=== PATIENT | female | born 1935 | race Caucasian/White ===

== ENCOUNTER 2018-02-13 17:27 | Observation (INO) ==
[2018-02-13] MEDS ORDERED: hydrALAZINE 20 MG/1 ML VIAL IV STA (18:37)
[2018-02-13] MEDS ORDERED: hydrALAZINE 20 MG/1 ML VIAL ONE (18:41)
[2018-02-13 18:42] LABS: Basophils % 0.3 % (0.0-0.8); Eosinophils # 0.1 10*3/uL (0.0-0.87); Eosinophils % 1.3 % (0.00-10.9); Hematocrit 31.5 VOL% (35.7-47.0); Hemoglobin 10.2 GM/DL (12.0-16.0); Immature Granulocytes % 0.7 %; Immature Granulocytes Absolute 0.04 #; Mean Corpuscular HGB Conc 32.4 GM/DL (32-36); Mean Corpuscular Hemoglobin 28 PG (27-34); Mean Corpuscular Volume 87.3 FL (87-102); Mean Platelet Volume 9.6 FL (9.6-12.0); Monocytes # 0.7 10*3/uL (0.11-0.8); Monocytes % 11.1 % (1.7-12.7); Neutrophils # 3.3 10*3/uL (1.4-7.4); Neutrophils % 53.6 % (38.7-73.9); Platelet Count 237 T/CUMM (130-400); Red Blood Count 3.61 MC/CUMM (3.8-5.5); Red Cell Distribution Width 14.1 % (9.3-17.3); White Blood Count 6.1 T/CUMM (4-12)
[2018-02-13 19:07] LABS: Alanine Aminotransferase 17 U/L (13-56); Albumin 3.6 G/DL (3.4-5.0); Alkaline Phosphatase 108 U/L (45-117); Aspartate Amino Transferase 31 U/L (0-37); Bilirubin,Total < 0.39 MG/DL (0.2-1.0); Blood Urea Nitrogen 34 MG/DL (7-18); Calcium 8.6 MG/DL (8.5-10.1); Glucose 105 MG/DL (74-106); Osmolality,Calculated 282.7 MOS/KG (273-304); Potassium 3.9 MMOL/L (3.5-5.1); Sodium 138 MMOL/L (136-145)
[2018-02-13] MEDS ORDERED: ACETAMINOPHEN 325 MG TABLET PO PRN (20:34)
[2018-02-13] MEDS ORDERED: ZALEPLON 5 MG CAPSULE PO PRN (20:34)
[2018-02-13] MEDS ORDERED: MAGNESIUM HYDROXIDE SUSP 30 ML UDCUP PO PRN (20:34)
[2018-02-13] MEDS ORDERED: MORPHINE 2 MG/1 ML SYRINGE IV PRN (20:34)
[2018-02-13] MEDS ORDERED: ONDANSETRON 4 MG/2 ML VIAL IV PRN (20:34)
[2018-02-13] MEDS ORDERED: hydrALAZINE 20 MG/1 ML VIAL IV PRN (20:34)
[2018-02-13] MEDS ORDERED: HydrOXYzine PAMOATE 25 MG CAPSULE PO PRN (22:04)
[2018-02-13] MEDS ORDERED: CARVEDILOL 3.125 MG TABLET PO SCH (22:04)
[2018-02-13] MEDS: SULFAMETHOX/TRIMETHOPRIM 800-160 MG TABLET PO SCH (22:29)
[2018-02-13] MEDS: FAMOTIDINE 20 MG TABLET PO SCH (22:29)
[2018-02-13] MEDS: ENOXAPARIN 30 MG/0.3 ML SYRINGE SUBCUT SCH (22:29)
[2018-02-13] MEDS: CILOSTAZOL 50 MG TABLET PO SCH (22:29)
[2018-02-13] MEDS: PRAVASTATIN 40 MG TABLET PO SCH (22:29)
[2018-02-14] MEDS: NITROGLYCERIN 2% OINT 1 INCH/GM PACK TOP SCH ×4 (00:06→17:04)
[2018-02-14 05:21] LABS: Albumin 3.3 G/DL (3.4-5.0); Bilirubin,Total 0.4 MG/DL (0.2-1.0); Calcium 8.5 MG/DL (8.5-10.1); Osmolality,Calculated 287.4 MOS/KG (273-304); Potassium 4.4 MMOL/L (3.5-5.1); Risk Ratio 2.48; Total Protein 7.4 G/DL (6.4-8.3)
[2018-02-14] MEDS: CILOSTAZOL 50 MG TABLET PO SCH ×2 (09:41→21:09)
[2018-02-14] MEDS: PARoxetine 20 MG TABLET PO SCH (09:42)
[2018-02-14] MEDS: EZETIMIBE 10 MG TABLET PO SCH (09:42)
[2018-02-14] MEDS: FAMOTIDINE 20 MG TABLET PO SCH ×2 (09:42→21:09)
[2018-02-14] MEDS: ASPIRIN EC 325 MG TABLET PO SCH (09:42)
[2018-02-14] MEDS: SULFAMETHOX/TRIMETHOPRIM 800-160 MG TABLET PO SCH ×2 (09:42→21:09)
[2018-02-14] MEDS: FUROSEMIDE 20 MG TABLET PO SCH ×2 (09:42→16:58)
[2018-02-14] MEDS: CARVEDILOL 6.25 MG TABLET PO SCH ×2 (09:42→21:09)
[2018-02-14] MEDS ORDERED: OLMESARTAN 20 MG TABLET PO SCH (11:00)
[2018-02-14 11:01] LABS: Apearance,Urine CLEAR (Clear); Bilirubin,Urine Negative (Negative); Blood, Urine Negative (Negative); Glucose,Urine (UA) Negative (Negative); Ketones,Urine Negative (Negative); Nitrite,Urine Negative (Negative); Protein,Urine 100 MG/DL; RBC,Urine 1 /HPF (0-4); Squamous Epithelial Cell,Urine Occasional /HPF (0-10); Urine Color Yellow (Yellow); Urine Specific Gravity 1.011 (1.001-1.035); Urine Urobilinogen < 2.0 EU/DL (0.2-1.0); WBC,Urine 2 /HPF (0-6)
[2018-02-14] MEDS: SODIUM CHLORIDE 0.45% 1,000 ML IV SCH (15:30)
[2018-02-14] MEDS: PRAVASTATIN 40 MG TABLET PO SCH (21:10)
[2018-02-14] MEDS: ENOXAPARIN 30 MG/0.3 ML SYRINGE SUBCUT SCH (21:10)
[2018-02-15] MEDS: NITROGLYCERIN 2% OINT 1 INCH/GM PACK TOP SCH ×2 (00:38→05:48)
[2018-02-15 04:35] LABS: Basophils % 0.5 % (0.0-0.8); Eosinophils # 0.2 10*3/uL (0.0-0.87); Eosinophils % 2.6 % (0.00-10.9); Hematocrit 30.4 VOL% (35.7-47.0); Hemoglobin 9.6 GM/DL (12.0-16.0); Immature Granulocytes % 0.6 %; Immature Granulocytes Absolute 0.04 #; Lymphocytes % 31.1 % (21.3-54.2); Mean Corpuscular HGB Conc 31.6 GM/DL (32-36); Mean Corpuscular Hemoglobin 29 PG (27-34); Mean Corpuscular Volume 90.2 FL (87-102); Mean Platelet Volume 9.2 FL (9.6-12.0); Monocytes # 0.7 10*3/uL (0.11-0.8); Monocytes % 11.3 % (1.7-12.7); Neutrophils # 3.5 10*3/uL (1.4-7.4); Neutrophils % 53.9 % (38.7-73.9); Platelet Count 200 T/CUMM (130-400); Red Blood Count 3.37 MC/CUMM (3.8-5.5); Red Cell Distribution Width 13.9 % (9.3-17.3); White Blood Count 6.4 T/CUMM (4-12)
[2018-02-15] MEDS: SODIUM CHLORIDE 0.45% 1,000 ML IV SCH (04:55)
[2018-02-15 05:05] LABS: Calcium 8.2 MG/DL (8.5-10.1); Osmolality,Calculated 285.7 MOS/KG (273-304)
[2018-02-15] MEDS ORDERED: INFLUENZA VIRUS VACCINE 0.5 ML SYRINGE IM ONE (09:00)
[2018-02-15] MEDS: ASPIRIN EC 325 MG TABLET PO SCH (09:51)
[2018-02-15] MEDS: EZETIMIBE 10 MG TABLET PO SCH (09:51)
[2018-02-15] MEDS: CILOSTAZOL 50 MG TABLET PO SCH (09:51)
[2018-02-15] MEDS: CARVEDILOL 6.25 MG TABLET PO SCH (09:51)
[2018-02-15] MEDS: FUROSEMIDE 20 MG TABLET PO SCH (09:51)
[2018-02-15] MEDS: FAMOTIDINE 20 MG TABLET PO SCH (09:52)
[2018-02-15] MEDS: SULFAMETHOX/TRIMETHOPRIM 800-160 MG TABLET PO SCH (09:52)
[2018-02-15] MEDS: PARoxetine 20 MG TABLET PO SCH (09:52)
[2018-02-15] MEDS ORDERED: INFLUENZA VIRUS VACCINE (FLULAVAL) SYRINGE IM ONE (11:30)
[2018-02-15 12:17] VITALS: BP 158/69
[2018-02-16] MEDS ORDERED: fentaNYL 25 MCG/HR PATCH TRANSDERM SCH (09:00)
== END 2018-02-15 13:39 | disposition home or self-care (01) ==
LOC: EDBD → EDUNIT# → N.ED 17:27 → N.EDINP 17:27 → SUATTDRO 20:34 → N.TELEN 21:26
PROVIDERS: ADMIT Internal Medicine; ATTEND Internal Medicine

== ENCOUNTER 2018-07-05 12:03 | Inpatient (IN) ==
[2018-07-05 13:04] LABS: Basophils % 0.1 % (0.0-0.8); Eosinophils % 0.1 % (0.00-10.9); Hematocrit 30.2 VOL% (35.7-47.0); Hemoglobin 10.3 GM/DL (12.0-16.0); Immature Granulocytes % 0.4 %; Immature Granulocytes Absolute 0.04 #; Lymphocytes # 1.8 10*3/uL (1.4-4.0); Lymphocytes % 18.1 % (21.3-54.2); Mean Corpuscular HGB Conc 34.1 GM/DL (32-36); Mean Corpuscular Hemoglobin 29 PG (27-34); Mean Corpuscular Volume 83.9 FL (87-102); Mean Platelet Volume 10.5 FL (9.6-12.0); Monocytes # 1.1 10*3/uL (0.11-0.8); Monocytes % 11.1 % (1.7-12.7); Neutrophils # 6.9 10*3/uL (1.4-7.4); Neutrophils % 70.2 % (38.7-73.9); Platelet Count 289 T/CUMM (130-400); Red Cell Distribution Width 16.6 % (9.3-17.3); White Blood Count 9.8 T/CUMM (4-12)
[2018-07-05 13:34] LABS: Albumin 2.9 G/DL (3.4-5.0); Bilirubin,Total 1.1 MG/DL (0.2-1.0); Calcium 8.5 MG/DL (8.5-10.1); Osmolality,Calculated 281.5 MOS/KG (273-304); Potassium 5.3 MMOL/L (3.5-5.1); Total Protein 8.5 G/DL (6.4-8.3)
[2018-07-05 14:02] LABS: Apearance,Urine CLEAR (Clear); Bacteria,Urine Occasional /HPF (Few); Bilirubin,Urine Negative (Negative); Blood, Urine Negative (Negative); Glucose,Urine (UA) Negative (Negative); Ketones,Urine Negative (Negative); Nitrite,Urine Negative (Negative); Protein,Urine 100 MG/DL; RBC,Urine 1 /HPF (0-4); Urine Color Yellow (Yellow); Urine Specific Gravity 1.006 (1.001-1.035); Urine Urobilinogen < 2.0 EU/DL (0.2-1.0); WBC,Urine 1 /HPF (0-6)
[2018-07-05] MEDS ORDERED: MORPHINE 4 MG/1 ML VIAL IV PRN (16:23)
[2018-07-05] MEDS ORDERED: DOCUSATE SODIUM 100 MG CAPSULE PO PRN (16:23)
[2018-07-05] MEDS ORDERED: ONDANSETRON 4 MG/2 ML VIAL IV PRN (16:23)
[2018-07-05] MEDS: SODIUM CHLORIDE 0.9% 1,000 ML IV SCH (17:50)
[2018-07-05] MEDS: CIPROFLOXACIN 500 MG TABLET PO SCH (18:10)
[2018-07-05] MEDS: SODIUM POLYSTYRENE SULFATE 15 GM/60 ML BOTTLE PO SCH (18:10)
[2018-07-05 19:27] LABS: Bilirubin,Direct 0.21 MG/DL (0.0-0.20); Bilirubin,Indirect 0.8 MG/DL (0.0-1.0); Total Protein 8.5 G/DL (6.4-8.3)
[2018-07-05 19:30] LABS: CKMB % 2.1 %
[2018-07-05] MEDS: CARVEDILOL 6.25 MG TABLET PO SCH (20:53)
[2018-07-06] MEDS: SODIUM POLYSTYRENE SULFATE 15 GM/60 ML BOTTLE PO SCH (04:12)
[2018-07-06 05:00] LABS: Basophils % 0.2 % (0.0-0.8); Eosinophils % 0.4 % (0.00-10.9); Hematocrit 27.7 VOL% (35.7-47.0); Hemoglobin 8.8 GM/DL (12.0-16.0); Immature Granulocytes % 0.5 %; Immature Granulocytes Absolute 0.04 #; Lymphocytes # 1.9 10*3/uL (1.4-4.0); Lymphocytes % 22.1 % (21.3-54.2); Mean Corpuscular HGB Conc 31.8 GM/DL (32-36); Mean Corpuscular Hemoglobin 28 PG (27-34); Mean Corpuscular Volume 86.8 FL (87-102); Mean Platelet Volume 9.7 FL (9.6-12.0); Monocytes # 1.1 10*3/uL (0.11-0.8); Monocytes % 12.6 % (1.7-12.7); Neutrophils # 5.5 10*3/uL (1.4-7.4); Neutrophils % 64.2 % (38.7-73.9); Platelet Count 234 T/CUMM (130-400); Red Blood Count 3.19 MC/CUMM (3.8-5.5); Red Cell Distribution Width 16.3 % (9.3-17.3); White Blood Count 8.5 T/CUMM (4-12)
[2018-07-06 05:29] LABS: Calcium 8.2 MG/DL (8.5-10.1); Potassium 2.8 MMOL/L (3.5-5.1); Risk Ratio 1.67; Thyroid Stimulating Hormone 1.12 uIU/ml (0.358-3.74); VLDL CHOLESTEROL 14.8 MG/DL
[2018-07-06] MEDS: POTASSIUM CHLORIDE 20 MEQ TABLET PO PRN ×4 (05:52→15:57)
[2018-07-06] MEDS: SODIUM CHLORIDE 0.9% 1,000 ML IV SCH ×2 (05:52→21:23)
[2018-07-06] MEDS: PANTOPRAZOLE 40 MG TABLET PO SCH (08:55)
[2018-07-06] MEDS: PRAVASTATIN 40 MG TABLET PO SCH (08:55)
[2018-07-06] MEDS: CARVEDILOL 6.25 MG TABLET PO SCH (08:56)
[2018-07-06] MEDS ORDERED: CARVEDILOL 6.25 MG TABLET PO ONE (11:26)
[2018-07-06] MEDS ORDERED: NITROGLYCERIN SL 0.4 MG TABLET SL PRN (11:32)
[2018-07-06] MEDS: CIPROFLOXACIN 500 MG TABLET PO SCH (12:07)
[2018-07-06] MEDS: ASPIRIN EC 81 MG TABLET PO SCH (12:07)
[2018-07-06] MEDS ORDERED: ISOSORBIDE DINITRATE SR 40 MG TABLET PO SCH (14:00)
[2018-07-06] MEDS: CARVEDILOL 12.5 MG TABLET PO SCH (17:10)
[2018-07-06] MEDS: ISOSORBIDE MONONITRATE 30 MG TABLET PO SCH (21:24)
[2018-07-06] MEDS: traZODone 50 MG TABLET PO SCH (23:15)
[2018-07-07 04:15] LABS: Basophils % 0.1 % (0.0-0.8); Eosinophils # 0.1 10*3/uL (0.0-0.87); Eosinophils % 0.9 % (0.00-10.9); Hemoglobin 7.3 GM/DL (12.0-16.0); Immature Granulocytes % 0.4 %; Immature Granulocytes Absolute 0.03 #; Lymphocytes # 1.9 10*3/uL (1.4-4.0); Lymphocytes % 25.9 % (21.3-54.2); Mean Corpuscular HGB Conc 31.7 GM/DL (32-36); Mean Corpuscular Hemoglobin 27 PG (27-34); Mean Corpuscular Volume 86.5 FL (87-102); Mean Platelet Volume 9.7 FL (9.6-12.0); Monocytes # 0.8 10*3/uL (0.11-0.8); Monocytes % 10.8 % (1.7-12.7); Neutrophils # 4.6 10*3/uL (1.4-7.4); Neutrophils % 61.9 % (38.7-73.9); Platelet Count 200 T/CUMM (130-400); Red Blood Count 2.66 MC/CUMM (3.8-5.5); Red Cell Distribution Width 16.1 % (9.3-17.3); White Blood Count 7.4 T/CUMM (4-12)
[2018-07-07 04:49] LABS: Calcium 8.1 MG/DL (8.5-10.1); Osmolality,Calculated 297.3 MOS/KG (273-304); Potassium 3.1 MMOL/L (3.5-5.1)
[2018-07-07 04:50] LABS: Calcium 8.2 MG/DL (8.5-10.1); Osmolality,Calculated 295.4 MOS/KG (273-304); Potassium 3.1 MMOL/L (3.5-5.1)
[2018-07-07] MEDS: POTASSIUM CHLORIDE 20 MEQ TABLET PO PRN ×4 (05:08→14:51)
[2018-07-07] MEDS ORDERED: SODIUM CHLORIDE 0.9% 1,000 ML IV PRN (05:42)
[2018-07-07] MEDS: CIPROFLOXACIN 500 MG TABLET PO SCH (06:53)
[2018-07-07 08:46] LABS: % Iron Saturation 12.3 % (18-50); Ferritin 122.6 ng/ml (8-252)
[2018-07-07 08:53] LABS: Folate 10.6 NG/ML (5.4-24.0)
[2018-07-07] MEDS ORDERED: FERROUS SULFATE 325 MG TABLET PO SCH (09:00)
[2018-07-07] MEDS: CARVEDILOL 12.5 MG TABLET PO SCH (09:05)
[2018-07-07] MEDS: PANTOPRAZOLE 40 MG TABLET PO SCH (09:05)
[2018-07-07] MEDS: ISOSORBIDE MONONITRATE 30 MG TABLET PO SCH ×2 (09:05→21:19)
[2018-07-07] MEDS: PRAVASTATIN 40 MG TABLET PO SCH (09:05)
[2018-07-07] MEDS: ASPIRIN EC 81 MG TABLET PO SCH (09:05)
[2018-07-07] MEDS: SODIUM CHLORIDE 0.9% 1,000 ML IV SCH (09:06)
[2018-07-07] MEDS: CARVEDILOL 25 MG TABLET PO SCH (17:47)
[2018-07-07] MEDS: traZODone 50 MG TABLET PO SCH (21:20)
[2018-07-08] MEDS: CIPROFLOXACIN 500 MG TABLET PO SCH (00:12)
[2018-07-08] MEDS: SODIUM CHLORIDE 0.9% 1,000 ML IV SCH ×2 (00:13→11:51)
[2018-07-08 04:30] LABS: Basophils % 0.3 % (0.0-0.8); Eosinophils # 0.1 10*3/uL (0.0-0.87); Eosinophils % 1.7 % (0.00-10.9); Hematocrit 25.3 VOL% (35.7-47.0); Hemoglobin 8.1 GM/DL (12.0-16.0); Immature Granulocytes % 0.5 %; Immature Granulocytes Absolute 0.04 #; Lymphocytes # 1.9 10*3/uL (1.4-4.0); Lymphocytes % 24.5 % (21.3-54.2); Mean Corpuscular Hemoglobin 28 PG (27-34); Mean Corpuscular Volume 88.5 FL (87-102); Mean Platelet Volume 10.1 FL (9.6-12.0); Monocytes # 0.8 10*3/uL (0.11-0.8); Monocytes % 10.5 % (1.7-12.7); Neutrophils # 4.9 10*3/uL (1.4-7.4); Neutrophils % 62.5 % (38.7-73.9); Platelet Count 192 T/CUMM (130-400); Red Blood Count 2.86 MC/CUMM (3.8-5.5); Red Cell Distribution Width 15.9 % (9.3-17.3); White Blood Count 7.8 T/CUMM (4-12)
[2018-07-08 04:45] LABS: Calcium 7.7 MG/DL (8.5-10.1); Calcium 7.9 MG/DL (8.5-10.1); Osmolality,Calculated 292.3 MOS/KG (273-304); Osmolality,Calculated 294.1 MOS/KG (273-304); Potassium 3.7 MMOL/L (3.5-5.1)
[2018-07-08] MEDS ORDERED: FERROUS SULFATE 325 MG TABLET PO SCH (09:00)
[2018-07-08] MEDS: PRAVASTATIN 40 MG TABLET PO SCH (09:14)
[2018-07-08] MEDS: CARVEDILOL 25 MG TABLET PO SCH (09:14)
[2018-07-08] MEDS: PANTOPRAZOLE 40 MG TABLET PO SCH (09:14)
[2018-07-08] MEDS: ASPIRIN EC 81 MG TABLET PO SCH (09:14)
[2018-07-08] MEDS: ISOSORBIDE MONONITRATE 30 MG TABLET PO SCH (09:14)
[2018-07-08] MEDS ORDERED: ISOSORBIDE MONONITRATE 30 MG TABLET PO SCH (10:57)
[2018-07-08 12:45] VITALS: BP 191/87
== END 2018-07-08 14:15 | disposition home health service (06) | DRG 312 ==
LOC: EDBD → EDUNIT# → N.ED 12:03 → N.EDINP 14:26 → N.2W 15:02 → N.TELES 16:04
PROVIDERS: ADMIT Internal Medicine; ATTEND Internal Medicine

== ENCOUNTER 2019-05-31 17:06 | Inpatient (IN) ==
[2019-05-31 18:00] LABS: Basophils % 0.5 % (0.0-0.8); Eosinophils # 0.1 10*3/uL (0.0-0.87); Eosinophils % 1.7 % (0.00-10.9); Hematocrit 26.9 VOL% (35.7-47.0); Hemoglobin 8.1 GM/DL (12.0-16.0); Immature Granulocytes % 0.5 %; Immature Granulocytes Absolute 0.03 #; Lymphocytes # 1.7 10*3/uL (1.4-4.0); Lymphocytes % 28.6 % (21.3-54.2); Mean Corpuscular HGB Conc 30.1 GM/DL (32-36); Mean Corpuscular Volume 90.9 FL (87-102); Mean Platelet Volume 9.6 FL (9.6-12.0); Monocytes % 10.3 % (1.7-12.7); Neutrophils % 58.4 % (38.7-73.9); Platelet Count 261 T/CUMM (130-400); Red Blood Count 2.96 MC/CUMM (3.8-5.5); Red Cell Distribution Width 14.5 % (9.3-17.3); White Blood Count 5.8 T/CUMM (4-12)
[2019-05-31 18:16] LABS: Alanine Aminotransferase 28 U/L (13-56); Albumin 2.9 G/DL (3.4-5.0); Alkaline Phosphatase 94 U/L (45-117); Aspartate Amino Transferase 22 U/L (0-37); Bilirubin,Total < 0.39 MG/DL (0.2-1.0); Blood Urea Nitrogen 53 MG/DL (7-18); Calcium 8.4 MG/DL (8.5-10.1); Glucose 158 MG/DL (74-106); Osmolality,Calculated 291.7 MOS/KG (273-304); Total Protein 7.7 G/DL (6.4-8.3)
[2019-05-31] MEDS ORDERED: ASPIRIN CHEW 81 MG TABLET PO STA (18:36)
[2019-05-31] MEDS ORDERED: FUROSEMIDE 40 MG/4 ML VIAL IV STA (18:36)
[2019-05-31] MEDS ORDERED: PANTOPRAZOLE 40 MG VIAL IV STA (18:40)
[2019-05-31 19:17] LABS: Apearance,Urine CLEAR (Clear); Bilirubin,Urine Negative (Negative); Blood, Urine Negative (Negative); Glucose,Urine (UA) Negative (Negative); Ketones,Urine Negative (Negative); Mucus,Urine Occasional /LPF (Occasional); Nitrite,Urine Negative (Negative); Protein,Urine Negative; RBC,Urine 2 /HPF (0-4); Urine Color Yellow (Yellow); Urine Specific Gravity 1.009 (1.001-1.035); Urine Urobilinogen < 2.0 EU/DL (0.2-1.0); WBC,Urine 21 /HPF (0-6)
[2019-05-31] MEDS ORDERED: ACETAMINOPHEN 325 MG TABLET PO PRN (20:12)
[2019-05-31] MEDS ORDERED: traZODone 50 MG TABLET PO PRN (20:12)
[2019-05-31] MEDS ORDERED: ONDANSETRON 4 MG/2 ML VIAL IV PRN (20:12)
[2019-05-31] MEDS ORDERED: NITROGLYCERIN SL 0.4 MG TABLET SL PRN (20:21)
[2019-05-31] MEDS ORDERED: ALBUTEROL/IPRATROPIUM 3 ML NEB RESP TX PRN (20:21)
[2019-05-31] MEDS ORDERED: SODIUM CHLORIDE 0.9% 1,000 ML IV PRN (20:25)
[2019-05-31] MEDS ORDERED: FUROSEMIDE 40 MG/4 ML VIAL IV ONE (20:26)
[2019-05-31 20:52] LABS: Risk Ratio 2.82; Thyroid Stimulating Hormone 1.56 uIU/ml (0.358-3.74); VLDL CHOLESTEROL 24.4 MG/DL
[2019-05-31] MEDS ORDERED: CARVEDILOL 6.25 MG TABLET PO SCH (21:00)
[2019-05-31] MEDS: FERROUS SULFATE 325 MG TABLET PO SCH (23:05)
[2019-05-31] MEDS: FAMOTIDINE 20 MG TABLET PO SCH (23:05)
[2019-05-31] MEDS: traZODone 50 MG TABLET PO SCH (23:05)
[2019-05-31] MEDS: cefTRIAXone 1,000 MG in SYRINGE 1 EACH IV SCH (23:06)
[2019-06-01] MEDS ORDERED: SODIUM CHLORIDE 0.9% 1,000 ML IV PRN (01:36)
[2019-06-01 02:08] LABS: Basophils % 0.6 % (0.0-0.8); Eosinophils # 0.1 10*3/uL (0.0-0.87); Eosinophils % 2.2 % (0.00-10.9); Hematocrit 25.8 VOL% (35.7-47.0); Hemoglobin 7.9 GM/DL (12.0-16.0); Immature Granulocytes % 0.8 %; Immature Granulocytes Absolute 0.04 #; Lymphocytes # 1.6 10*3/uL (1.4-4.0); Lymphocytes % 33.5 % (21.3-54.2); Mean Corpuscular HGB Conc 30.6 GM/DL (32-36); Mean Corpuscular Volume 91.5 FL (87-102); Mean Platelet Volume 9.5 FL (9.6-12.0); Neutrophils % 52.9 % (38.7-73.9); Platelet Count 254 T/CUMM (130-400); Red Blood Count 2.82 MC/CUMM (3.8-5.5); Red Cell Distribution Width 14.3 % (9.3-17.3); White Blood Count 4.9 T/CUMM (4-12)
[2019-06-01 02:28] LABS: Alanine Aminotransferase 26 U/L (13-56); Albumin 2.6 G/DL (3.4-5.0); Alkaline Phosphatase 87 U/L (45-117); Aspartate Amino Transferase 19 U/L (0-37); Bilirubin,Total < 0.39 MG/DL (0.2-1.0); Blood Urea Nitrogen 54 MG/DL (7-18); Calcium 8.3 MG/DL (8.5-10.1); Glucose 100 MG/DL (74-106); Osmolality,Calculated 293.4 MOS/KG (273-304); Total Protein 7.3 G/DL (6.4-8.3)
[2019-06-01] MEDS ORDERED: POTASSIUM CHLORIDE 20 MEQ TABLET PO ONE (07:19)
[2019-06-01] MEDS: FUROSEMIDE 40 MG/4 ML VIAL IV SCH ×2 (08:57→15:40)
[2019-06-01] MEDS: ISOSORBIDE MONONITRATE 30 MG TABLET PO SCH (08:58)
[2019-06-01] MEDS: PARoxetine 20 MG TABLET PO SCH (08:59)
[2019-06-01] MEDS: PANTOPRAZOLE 40 MG TABLET PO SCH (08:59)
[2019-06-01] MEDS: FERROUS SULFATE 325 MG TABLET PO SCH ×3 (08:59→21:13)
[2019-06-01] MEDS ORDERED: NON-FORMULARY MEDICATION (Biotin 5 MG) PO SCH (09:00)
[2019-06-01] MEDS: CARVEDILOL 12.5 MG TABLET PO SCH ×2 (09:06→21:13)
[2019-06-01] MEDS: ASPIRIN EC 81 MG TABLET PO SCH (09:06)
[2019-06-01 09:35] LABS: Troponin I 0.683 NG/ML (0.00-0.045)
[2019-06-01] MEDS: ALLOPURINOL 100 MG TABLET PO SCH ×2 (13:41→21:13)
[2019-06-01 16:10] LABS: Hematocrit 35.4 VOL% (35.7-47.0); Hemoglobin 10.9 GM/DL (12.0-16.0)
[2019-06-01] MEDS: FAMOTIDINE 20 MG TABLET PO SCH (21:13)
[2019-06-01] MEDS: traZODone 50 MG TABLET PO SCH (21:13)
[2019-06-01] MEDS: SIMVASTATIN 20 MG TABLET PO SCH (21:13)
[2019-06-01] MEDS: cefTRIAXone 1,000 MG in SYRINGE 1 EACH IV SCH (21:14)
[2019-06-02 06:46] LABS: Troponin I 0.529 NG/ML (0.00-0.045)
[2019-06-02 07:23] LABS: % Iron Saturation 16.2 % (18-50); Ferritin 136.3 ng/ml (8-252); Total Protein 7.4 G/DL (6.4-8.3)
[2019-06-02] MEDS: ASPIRIN EC 81 MG TABLET PO SCH (09:02)
[2019-06-02] MEDS: FERROUS SULFATE 325 MG TABLET PO SCH ×3 (09:02→20:50)
[2019-06-02] MEDS: ISOSORBIDE MONONITRATE 30 MG TABLET PO SCH (09:02)
[2019-06-02] MEDS: ALLOPURINOL 100 MG TABLET PO SCH (09:03)
[2019-06-02] MEDS: CARVEDILOL 12.5 MG TABLET PO SCH ×2 (09:03→20:50)
[2019-06-02] MEDS: FUROSEMIDE 40 MG/4 ML VIAL IV SCH (09:03)
[2019-06-02] MEDS: PARoxetine 20 MG TABLET PO SCH (09:03)
[2019-06-02] MEDS: PANTOPRAZOLE 40 MG TABLET PO SCH (09:03)
[2019-06-02] MEDS: POLYETHYLENE GLYCOL POWDER 17 GM PACK PO SCH ×2 (16:56→20:51)
[2019-06-02] MEDS: traZODone 50 MG TABLET PO SCH (20:50)
[2019-06-02] MEDS: SIMVASTATIN 20 MG TABLET PO SCH (20:51)
[2019-06-02] MEDS: FAMOTIDINE 20 MG TABLET PO SCH (20:51)
[2019-06-02] MEDS: cefTRIAXone 1,000 MG in SYRINGE 1 EACH IV SCH (20:51)
[2019-06-03 06:14] LABS: Basophils % 0.6 % (0.0-0.8); Eosinophils # 0.1 10*3/uL (0.0-0.87); Eosinophils % 1.8 % (0.00-10.9); Hematocrit 32.2 VOL% (35.7-47.0); Hemoglobin 9.8 GM/DL (12.0-16.0); Immature Granulocytes % 0.5 %; Immature Granulocytes Absolute 0.03 #; Lymphocytes # 1.6 10*3/uL (1.4-4.0); Lymphocytes % 24.8 % (21.3-54.2); Mean Corpuscular HGB Conc 30.4 GM/DL (32-36); Mean Corpuscular Volume 89.9 FL (87-102); Mean Platelet Volume 9.5 FL (9.6-12.0); Monocytes % 11.8 % (1.7-12.7); Neutrophils % 60.5 % (38.7-73.9); Platelet Count 242 T/CUMM (130-400); Red Blood Count 3.58 MC/CUMM (3.8-5.5); Red Cell Distribution Width 14.9 % (9.3-17.3); White Blood Count 6.3 T/CUMM (4-12)
[2019-06-03 06:20] LABS: Calcium 8.7 MG/DL (8.5-10.1); Osmolality,Calculated 294.5 MOS/KG (273-304)
[2019-06-03 06:54] LABS: Total Protein (Chem) 7.4 G/DL (6.4-8.3)
[2019-06-03] MEDS ORDERED: PROPOFOL 200 MG/20 ML VIAL IV ONE (09:00)
[2019-06-03] MEDS ORDERED: LIDOCAINE 1% 5 ML VIAL ONE (09:00)
[2019-06-03 10:17] LABS: Albumin (SPE) 3.6 G/DL (3.2-5.3); Albumin (SPE) Rel % 48.9 %; Alpha 1 (SPE) 0.3 G/DL (0.1-0.4); Alpha 1 (SPE) Rel % 3.6 %; Alpha 2 (SPE) 1.1 G/DL (0.4-1.0); Alpha 2 (SPE) Rel % 14.9 %; Beta (SPE) 0.7 G/DL (0.5-1.1); Beta (SPE) Rel % 10.1 %; Gamma (SPE) Rel % 22.5 %
[2019-06-03 10:19] LABS: Gamma (SPE) 1.7 G/DL (0.7-1.7)
[2019-06-03] MEDS: LACTATED RINGERS 1,000 ML IV SCH (13:55)
[2019-06-03] MEDS ORDERED: POLYETHYLENE GLYCOL 3350/ELECTROLYTES 4,000 ML BOTTLE PEG ONE (14:40)
[2019-06-03] MEDS: POLYETHYLENE GLYCOL POWDER 17 GM PACK PO SCH ×2 (15:00→21:52)
[2019-06-03] MEDS: PARoxetine 20 MG TABLET PO SCH (15:00)
[2019-06-03] MEDS: ASPIRIN EC 81 MG TABLET PO SCH (15:00)
[2019-06-03] MEDS: ISOSORBIDE MONONITRATE 30 MG TABLET PO SCH (15:00)
[2019-06-03] MEDS: PANTOPRAZOLE 40 MG TABLET PO SCH (15:00)
[2019-06-03] MEDS: FERROUS SULFATE 325 MG TABLET PO SCH ×2 (15:00→21:51)
[2019-06-03] MEDS ORDERED: POLYETHYLENE GLYCOL 3350/ELECTROLYTES 4,000 ML BOTTLE PO ONE (15:03)
[2019-06-03] MEDS: CARVEDILOL 12.5 MG TABLET PO SCH (15:32)
[2019-06-03] MEDS: BISACODYL 5 MG TABLET PO SCH ×2 (16:20→23:14)
[2019-06-03] MEDS ORDERED: POLYETHYLENE GLYCOL POWDER 255 GM BOTTLE PO ONE (18:00)
[2019-06-03] MEDS ORDERED: MAGNESIUM CITRATE 300 ML BOTTLE PO ONE (21:00)
[2019-06-03] MEDS: FAMOTIDINE 20 MG TABLET PO SCH (21:51)
[2019-06-03] MEDS: traZODone 50 MG TABLET PO SCH (21:51)
[2019-06-03] MEDS: CARVEDILOL 25 MG TABLET PO SCH (21:51)
[2019-06-03] MEDS: cefTRIAXone 1,000 MG in SYRINGE 1 EACH IV SCH (21:52)
[2019-06-03] MEDS: SIMVASTATIN 20 MG TABLET PO SCH (21:52)
[2019-06-04 04:42] LABS: Basophils % 0.3 % (0.0-0.8); Eosinophils # 0.1 10*3/uL (0.0-0.87); Hematocrit 34.1 VOL% (35.7-47.0); Hemoglobin 10.3 GM/DL (12.0-16.0); Immature Granulocytes % 0.3 %; Immature Granulocytes Absolute 0.02 #; Lymphocytes # 1.1 10*3/uL (1.4-4.0); Lymphocytes % 17.7 % (21.3-54.2); Mean Corpuscular HGB Conc 30.2 GM/DL (32-36); Mean Corpuscular Volume 90.7 FL (87-102); Mean Platelet Volume 9.8 FL (9.6-12.0); Monocytes % 12.4 % (1.7-12.7); Neutrophils % 68.3 % (38.7-73.9); Platelet Count 253 T/CUMM (130-400); Red Blood Count 3.76 MC/CUMM (3.8-5.5); Red Cell Distribution Width 14.7 % (9.3-17.3); White Blood Count 6.2 T/CUMM (4-12)
[2019-06-04 04:54] LABS: Calcium 8.8 MG/DL (8.5-10.1); Osmolality,Calculated 285.7 MOS/KG (273-304)
[2019-06-04] MEDS: LACTATED RINGERS 1,000 ML IV SCH (07:30)
[2019-06-04] MEDS ORDERED: PROPOFOL 200 MG/20 ML VIAL IV ONE (09:00)
[2019-06-04] MEDS ORDERED: ONDANSETRON 4 MG/2 ML VIAL ONE (09:00)
[2019-06-04] MEDS ORDERED: LIDOCAINE 2% 5 ML VIAL ONE (09:00)
[2019-06-04] MEDS: CARVEDILOL 25 MG TABLET PO SCH (09:05)
[2019-06-04] MEDS: BISACODYL 5 MG TABLET PO SCH (09:05)
[2019-06-04] MEDS: ASPIRIN EC 81 MG TABLET PO SCH (09:05)
[2019-06-04] MEDS: FERROUS SULFATE 325 MG TABLET PO SCH (09:05)
[2019-06-04] MEDS: ISOSORBIDE MONONITRATE 30 MG TABLET PO SCH (09:06)
[2019-06-04] MEDS: PANTOPRAZOLE 40 MG TABLET PO SCH (09:06)
[2019-06-04] MEDS: PARoxetine 20 MG TABLET PO SCH (09:06)
[2019-06-04] MEDS: POLYETHYLENE GLYCOL POWDER 17 GM PACK PO SCH (09:06)
[2019-06-04 11:55] VITALS: BP 155/74
[2019-06-05 09:20] LABS: Immuno Free Light Chain Kappa 44.19 MG/DL (0.33-1.94); Immuno Free Light Chain Lambda 1.12 MG/DL (0.57-2.63); Immuno Free Light Chain Ratio 39.46 MG/DL (0.26-1.65)
== END 2019-06-04 14:38 | disposition home or self-care (01) | DRG 377 ==
LOC: N.ED 17:06 → N.EDINP 20:11 → N.TELES 20:42
PROVIDERS: ADMIT Internal Medicine; ATTEND Internal Medicine

== ENCOUNTER 2022-07-02 09:20 | Inpatient (IN) ==
[2022-07-02] MEDS ORDERED: FUROSEMIDE 100 MG/10 ML VIAL IV STA (09:57)
[2022-07-02 10:03] LABS: Basophils % 0.4 % (0.0-0.8); Eosinophils % 0.5 % (0.00-10.9); Hematocrit 32.4 VOL% (35.7-47.0); Hemoglobin 9.9 GM/DL (12.0-16.0); Immature Granulocytes % 0.5 %; Immature Granulocytes Absolute 0.04 #; Lymphocytes # 1.3 10*3/uL (1.4-4.0); Lymphocytes % 15.2 % (21.3-54.2); Mean Corpuscular HGB Conc 30.6 GM/DL (32-36); Mean Corpuscular Volume 94.2 FL (87-102); Mean Platelet Volume 10.2 FL (9.6-12.0); Monocytes # 0.5 10*3/uL (0.11-0.8); Monocytes % 6.3 % (1.7-12.7); Neutrophils % 77.1 % (38.7-73.9); Platelet Count 206 T/CUMM (130-400); Red Blood Count 3.44 MC/CUMM (3.8-5.5); Red Cell Distribution Width 16.3 % (9.3-17.3); White Blood Count 8.5 T/CUMM (4-12)
[2022-07-02 10:13] LABS: Albumin 3.6 G/DL (3.4-5.0); Bilirubin,Total 0.6 MG/DL (0.20-1.00); Calcium 8.6 MG/DL (8.5-10.1); Potassium 3.7 MMOL/L (3.5-5.1); Total Protein 6.4 G/DL (6.4-8.2)
[2022-07-02] MEDS ORDERED: ACETAMINOPHEN 325 MG TABLET PO PRN (13:13)
[2022-07-02] MEDS ORDERED: DOCUSATE SODIUM 100 MG CAPSULE PO PRN (13:13)
[2022-07-02] MEDS ORDERED: hydrALAZINE 20 MG/1 ML VIAL IV PRN (13:13)
[2022-07-02] MEDS ORDERED: LACTULOSE 20 GM/30 ML UDCUP PO PRN (13:13)
[2022-07-02] MEDS ORDERED: ONDANSETRON 4 MG/2 ML VIAL IV PRN (13:13)
[2022-07-02] MEDS ORDERED: GLUCAGON 1 MG VIAL IM PRN (13:13)
[2022-07-02] MEDS ORDERED: ALUMINUM/MAGNES/SIMETH MAX STR 30 ML UDCUP PO PRN (13:13)
[2022-07-02] MEDS ORDERED: NITROGLYCERIN SL 0.4 MG TABLET SL PRN (13:22)
[2022-07-02] MEDS ORDERED: DEXTROSE 10% 250 ML BAG IV PRN (13:23)
[2022-07-02] MEDS ORDERED: FUROSEMIDE 40 MG/4 ML VIAL IV SCH (16:00)
[2022-07-02] MEDS: FERROUS SULFATE 325 MG TABLET PO SCH ×2 (16:46→20:46)
[2022-07-02] MEDS: carvediloL 12.5 MG TABLET PO SCH (20:46)
[2022-07-02] MEDS: SIMVASTATIN 20 MG TABLET PO SCH (20:46)
[2022-07-02] MEDS: ENOXAPARIN 30 MG/0.3 ML SYRINGE SUBCUT SCH (20:46)
[2022-07-02] MEDS: traZODone 50 MG TABLET PO SCH (20:49)
[2022-07-03 04:52] LABS: Basophils % 0.3 % (0.0-0.8); Eosinophils # 0.1 10*3/uL (0.0-0.87); Eosinophils % 1.3 % (0.00-10.9); Hematocrit 28.2 VOL% (35.7-47.0); Hemoglobin 8.4 GM/DL (12.0-16.0); Immature Granulocytes % 0.4 %; Immature Granulocytes Absolute 0.03 #; Lymphocytes # 1.5 10*3/uL (1.4-4.0); Lymphocytes % 21.6 % (21.3-54.2); Mean Corpuscular HGB Conc 29.8 GM/DL (32-36); Mean Corpuscular Volume 94.9 FL (87-102); Mean Platelet Volume 10.5 FL (9.6-12.0); Monocytes # 0.6 10*3/uL (0.11-0.8); Monocytes % 9.3 % (1.7-12.7); Neutrophils % 67.1 % (38.7-73.9); Platelet Count 156 T/CUMM (130-400); Red Blood Count 2.97 MC/CUMM (3.8-5.5); Red Cell Distribution Width 15.9 % (9.3-17.3); White Blood Count 6.9 T/CUMM (4-12)
[2022-07-03 05:33] LABS: Bilirubin,Total 0.4 MG/DL (0.20-1.00); Calcium 7.7 MG/DL (8.5-10.1); Osmolality,Calculated 305.3 MOS/KG (273-304); Potassium 3.6 MMOL/L (3.5-5.1); Risk Ratio 2.97; Thyroid Stimulating Hormone 1.42 uIU/ml (0.358-3.74); Total Protein 5.7 G/DL (6.4-8.2); VLDL Cholesterol 30.6 MG/DL
[2022-07-03] MEDS ORDERED: SODIUM CHLORIDE 0.9% 1,000 ML IV SCH (08:30)
[2022-07-03] MEDS: ASPIRIN EC 81 MG TABLET PO SCH (08:49)
[2022-07-03] MEDS: PANTOPRAZOLE 40 MG TABLET PO SCH (08:49)
[2022-07-03] MEDS: ISOSORBIDE MONONITRATE 60 MG TABLET PO SCH (08:50)
[2022-07-03] MEDS: FERROUS SULFATE 325 MG TABLET PO SCH ×3 (08:50→21:24)
[2022-07-03] MEDS: carvediloL 12.5 MG TABLET PO SCH ×2 (08:50→21:24)
[2022-07-03] MEDS: allopurinoL 100 MG TABLET PO SCH (08:50)
[2022-07-03] MEDS: EZETIMIBE 10 MG TABLET PO SCH (08:50)
[2022-07-03] MEDS: PARoxetine 20 MG TABLET PO SCH (08:50)
[2022-07-03] MEDS: cefTRIAXone 1,000 MG in SODIUM CHLORIDE 0.9% 100 ML IV SCH (10:36)
[2022-07-03] MEDS: AZITHROMYCIN INJ 500 MG in SODIUM CHLORIDE 0.9% 250 ML IV SCH (11:35)
[2022-07-03] MEDS: ENOXAPARIN 30 MG/0.3 ML SYRINGE SUBCUT SCH (21:24)
[2022-07-03] MEDS: traZODone 50 MG TABLET PO SCH (21:24)
[2022-07-03] MEDS: SIMVASTATIN 20 MG TABLET PO SCH (21:24)
[2022-07-04 05:44] LABS: Basophils % 0.3 % (0.0-0.8); Eosinophils # 0.1 10*3/uL (0.0-0.87); Eosinophils % 2.1 % (0.00-10.9); Hematocrit 28.5 VOL% (35.7-47.0); Hemoglobin 8.7 GM/DL (12.0-16.0); Immature Granulocytes % 0.9 %; Immature Granulocytes Absolute 0.06 #; Lymphocytes # 1.2 10*3/uL (1.4-4.0); Mean Corpuscular HGB Conc 30.5 GM/DL (32-36); Mean Corpuscular Volume 95.3 FL (87-102); Mean Platelet Volume 10.7 FL (9.6-12.0); Monocytes # 0.6 10*3/uL (0.11-0.8); Monocytes % 8.9 % (1.7-12.7); Neutrophils % 69.8 % (38.7-73.9); Platelet Count 156 T/CUMM (130-400); Red Blood Count 2.99 MC/CUMM (3.8-5.5); White Blood Count 6.7 T/CUMM (4-12)
[2022-07-04 06:13] LABS: Calcium 7.7 MG/DL (8.5-10.1); Osmolality,Calculated 310.8 MOS/KG (273-304); Potassium 3.5 MMOL/L (3.5-5.1)
[2022-07-04] MEDS: ASPIRIN EC 81 MG TABLET PO SCH (10:39)
[2022-07-04] MEDS: allopurinoL 100 MG TABLET PO SCH (10:39)
[2022-07-04] MEDS: FERROUS SULFATE 325 MG TABLET PO SCH ×3 (10:39→21:31)
[2022-07-04] MEDS: PARoxetine 20 MG TABLET PO SCH (10:39)
[2022-07-04] MEDS: EZETIMIBE 10 MG TABLET PO SCH (10:40)
[2022-07-04] MEDS: carvediloL 12.5 MG TABLET PO SCH ×2 (10:40→21:31)
[2022-07-04] MEDS: PANTOPRAZOLE 40 MG TABLET PO SCH (10:40)
[2022-07-04] MEDS: ISOSORBIDE MONONITRATE 60 MG TABLET PO SCH (10:41)
[2022-07-04] MEDS: cefTRIAXone 1,000 MG in SODIUM CHLORIDE 0.9% 100 ML IV SCH (10:43)
[2022-07-04] MEDS: AZITHROMYCIN INJ 500 MG in SODIUM CHLORIDE 0.9% 250 ML IV SCH (11:40)
[2022-07-04] MEDS: ENOXAPARIN 30 MG/0.3 ML SYRINGE SUBCUT SCH (21:31)
[2022-07-04] MEDS: traZODone 50 MG TABLET PO SCH (21:31)
[2022-07-04] MEDS: SIMVASTATIN 20 MG TABLET PO SCH (21:31)
[2022-07-05 09:04] LABS: Osmolality,Calculated 309.1 MOS/KG (273-304); Potassium 3.5 MMOL/L (3.5-5.1)
[2022-07-05] MEDS: cefTRIAXone 1,000 MG in SODIUM CHLORIDE 0.9% 100 ML IV SCH (09:34)
[2022-07-05] MEDS: EZETIMIBE 10 MG TABLET PO SCH (09:35)
[2022-07-05] MEDS: allopurinoL 100 MG TABLET PO SCH (09:36)
[2022-07-05] MEDS: FERROUS SULFATE 325 MG TABLET PO SCH ×3 (09:36→21:09)
[2022-07-05] MEDS: PANTOPRAZOLE 40 MG TABLET PO SCH (09:36)
[2022-07-05] MEDS: carvediloL 12.5 MG TABLET PO SCH ×2 (09:36→21:09)
[2022-07-05] MEDS: ASPIRIN EC 81 MG TABLET PO SCH (09:37)
[2022-07-05] MEDS: PARoxetine 20 MG TABLET PO SCH (09:37)
[2022-07-05] MEDS: ISOSORBIDE MONONITRATE 60 MG TABLET PO SCH (09:37)
[2022-07-05] MEDS ORDERED: SODIUM CHLORIDE 0.9% 1,000 ML IV SCH (10:30)
[2022-07-05] MEDS: AZITHROMYCIN INJ 500 MG in SODIUM CHLORIDE 0.9% 250 ML IV SCH (14:36)
[2022-07-05] MEDS: traZODone 50 MG TABLET PO SCH (21:09)
[2022-07-05] MEDS: SIMVASTATIN 20 MG TABLET PO SCH (21:09)
[2022-07-05] MEDS: ENOXAPARIN 30 MG/0.3 ML SYRINGE SUBCUT SCH (21:10)
[2022-07-06 04:40] LABS: Basophils % 0.5 % (0.0-0.8); Eosinophils # 0.1 10*3/uL (0.0-0.87); Eosinophils % 1.7 % (0.00-10.9); Hematocrit 30.9 VOL% (35.7-47.0); Hemoglobin 9.2 GM/DL (12.0-16.0); Immature Granulocytes % 0.6 %; Immature Granulocytes Absolute 0.05 #; Lymphocytes # 1.8 10*3/uL (1.4-4.0); Lymphocytes % 22.1 % (21.3-54.2); Mean Corpuscular HGB Conc 29.8 GM/DL (32-36); Mean Corpuscular Volume 97.8 FL (87-102); Monocytes # 0.7 10*3/uL (0.11-0.8); Monocytes % 8.9 % (1.7-12.7); Neutrophils % 66.2 % (38.7-73.9); Platelet Count 157 T/CUMM (130-400); Red Blood Count 3.16 MC/CUMM (3.8-5.5); Red Cell Distribution Width 16.1 % (9.3-17.3); White Blood Count 8.1 T/CUMM (4-12)
[2022-07-06 05:02] LABS: Calcium 8.9 MG/DL (8.5-10.1); Osmolality,Calculated 307.1 MOS/KG (273-304); Potassium 3.8 MMOL/L (3.5-5.1)
[2022-07-06] MEDS: PARoxetine 20 MG TABLET PO SCH (09:57)
[2022-07-06] MEDS: ASPIRIN EC 81 MG TABLET PO SCH (09:57)
[2022-07-06] MEDS: carvediloL 12.5 MG TABLET PO SCH (09:57)
[2022-07-06] MEDS: ISOSORBIDE MONONITRATE 60 MG TABLET PO SCH (09:57)
[2022-07-06] MEDS: EZETIMIBE 10 MG TABLET PO SCH (09:57)
[2022-07-06] MEDS: allopurinoL 100 MG TABLET PO SCH (09:58)
[2022-07-06] MEDS: FERROUS SULFATE 325 MG TABLET PO SCH (09:58)
[2022-07-06] MEDS: PANTOPRAZOLE 40 MG TABLET PO SCH (09:58)
[2022-07-06] MEDS: AZITHROMYCIN INJ 500 MG in SODIUM CHLORIDE 0.9% 250 ML IV SCH (09:59)
[2022-07-06] MEDS: cefTRIAXone 1,000 MG in SODIUM CHLORIDE 0.9% 100 ML IV SCH (11:25)
[2022-07-06 13:44] VITALS: BP 162/79
== END 2022-07-06 14:09 | disposition home health service (06) | DRG 291 ==
LOC: N.EDINP 09:20 → N.ED 09:20 → N.TELES 15:12 → SUATTDRO 07-03 08:31
PROVIDERS: ADMIT Phlebology; ATTEND Hospitalist

== ENCOUNTER 2022-07-11 11:37 | Observation (INO) ==
[2022-07-11 12:19] LABS: Basophils % 0.4 % (0.0-0.8); Eosinophils % 0.5 % (0.00-10.9); Hematocrit 31.5 VOL% (35.7-47.0); Hemoglobin 9.7 GM/DL (12.0-16.0); Immature Granulocytes % 0.7 %; Immature Granulocytes Absolute 0.05 #; Lymphocytes # 1.2 10*3/uL (1.4-4.0); Mean Corpuscular HGB Conc 30.8 GM/DL (32-36); Mean Corpuscular Volume 95.5 FL (87-102); Mean Platelet Volume 10.4 FL (9.6-12.0); Monocytes # 0.6 10*3/uL (0.11-0.8); Monocytes % 7.7 % (1.7-12.7); NRBC # 0.02 10*3/uL; Neutrophils % 74.7 % (38.7-73.9); Platelet Count 140 T/CUMM (130-400); Red Cell Distribution Width 16.8 % (9.3-17.3); White Blood Count 7.4 T/CUMM (4-12)
[2022-07-11 12:46] LABS: Albumin 3.4 G/DL (3.4-5.0); Bilirubin,Total 0.5 MG/DL (0.20-1.00); Osmolality,Calculated 304.1 MOS/KG (273-304); Potassium 4.6 MMOL/L (3.5-5.1)
[2022-07-11] MEDS ORDERED: FUROSEMIDE 40 MG/4 ML VIAL IV STA (14:03)
[2022-07-11] MEDS ORDERED: ACETAMINOPHEN 325 MG TABLET PO PRN (15:39)
[2022-07-11] MEDS ORDERED: GLUCAGON 1 MG VIAL IM PRN (15:39)
[2022-07-11] MEDS ORDERED: ONDANSETRON 4 MG/2 ML VIAL IV PRN (15:39)
[2022-07-11] MEDS ORDERED: DEXTROSE 10% 250 ML BAG IV PRN (15:46)
[2022-07-11] MEDS ORDERED: NITROGLYCERIN SL 0.4 MG TABLET SL PRN (16:00)
[2022-07-11] MEDS: carvediloL 12.5 MG TABLET PO SCH (16:47)
[2022-07-11] MEDS: traZODone 50 MG TABLET PO SCH (21:13)
[2022-07-11] MEDS: FAMOTIDINE 20 MG TABLET PO SCH (21:13)
[2022-07-11] MEDS: FERROUS SULFATE 325 MG TABLET PO SCH (21:13)
[2022-07-11] MEDS: HEPARIN 5,000 UNIT/1 ML VIAL SUBCUT SCH (21:14)
[2022-07-12 03:59] LABS: Basophils % 0.4 % (0.0-0.8); Eosinophils # 0.1 10*3/uL (0.0-0.87); Eosinophils % 1.3 % (0.00-10.9); Hematocrit 29.5 VOL% (35.7-47.0); Hemoglobin 8.9 GM/DL (12.0-16.0); Immature Granulocytes % 0.7 %; Immature Granulocytes Absolute 0.05 #; Lymphocytes # 1.3 10*3/uL (1.4-4.0); Lymphocytes % 18.7 % (21.3-54.2); Mean Corpuscular HGB Conc 30.2 GM/DL (32-36); Mean Corpuscular Volume 96.1 FL (87-102); Mean Platelet Volume 11.4 FL (9.6-12.0); Monocytes # 0.7 10*3/uL (0.11-0.8); Monocytes % 9.2 % (1.7-12.7); NRBC # 0.02 10*3/uL; Neutrophils % 69.7 % (38.7-73.9); Platelet Count 130 T/CUMM (130-400); Red Blood Count 3.07 MC/CUMM (3.8-5.5); White Blood Count 7.1 T/CUMM (4-12)
[2022-07-12 04:20] LABS: Bilirubin,Total 0.5 MG/DL (0.20-1.00); Calcium 8.3 MG/DL (8.5-10.1); Osmolality,Calculated 308.8 MOS/KG (273-304); Total Protein 5.8 G/DL (6.4-8.2)
[2022-07-12 06:58] LABS: Glucose,Urine (UA) Negative (Negative); Ketones,Urine Negative (Negative); Mucus,Urine Occasional /LPF (Occasional); Nitrite,Urine Negative (Negative); Protein,Urine >=300 mg/dL (Negative); RBC,Urine 1 /HPF (0-4); Squamous Epithelial Cell,Urine Occasional /HPF (0-10); Urine Appearance Clear (Clear); Urine Color Yellow (Yellow)
[2022-07-12 06:59] LABS: Bilirubin,Urine Negative (Negative); Blood, Urine Negative (Negative); Urine Urobilinogen 0.2 eU/dL (<2.0)
[2022-07-12 08:05] LABS: Folate > 24.00 NG/ML (5.38-24.0); Vitamin B12 571 PG/ML (211-911)
[2022-07-12] MEDS: ASPIRIN EC 81 MG TABLET PO SCH (08:40)
[2022-07-12] MEDS: FERROUS SULFATE 325 MG TABLET PO SCH ×3 (08:40→20:49)
[2022-07-12] MEDS: allopurinoL 100 MG TABLET PO SCH (08:40)
[2022-07-12] MEDS: ISOSORBIDE MONONITRATE 60 MG TABLET PO SCH (08:40)
[2022-07-12] MEDS: PARoxetine 20 MG TABLET PO SCH (08:41)
[2022-07-12] MEDS: FUROSEMIDE 40 MG/4 ML VIAL IV SCH ×2 (08:41→16:09)
[2022-07-12] MEDS: HEPARIN 5,000 UNIT/1 ML VIAL SUBCUT SCH ×2 (08:41→20:53)
[2022-07-12] MEDS: FAMOTIDINE 20 MG TABLET PO SCH ×2 (08:41→20:50)
[2022-07-12] MEDS: carvediloL 25 MG TABLET PO SCH ×2 (08:43→16:08)
[2022-07-12] MEDS: EZETIMIBE 10 MG TABLET PO SCH (08:43)
[2022-07-12 09:07] LABS: % Iron Saturation 15.8 % (18-50); Ferritin 169.8 ng/mL (8-252)
[2022-07-12] MEDS: carvediloL 12.5 MG TABLET PO SCH (09:31)
[2022-07-12] MEDS ORDERED: DOCUSATE SODIUM 100 MG CAPSULE PO PRN (19:46)
[2022-07-12] MEDS: traZODone 50 MG TABLET PO SCH (20:49)
[2022-07-12] MEDS ORDERED: SIMVASTATIN 20 MG TABLET PO SCH (21:00)
[2022-07-13 04:31] LABS: Basophils % 0.4 % (0.0-0.8); Eosinophils # 0.2 10*3/uL (0.0-0.87); Eosinophils % 2.2 % (0.00-10.9); Hematocrit 29.2 VOL% (35.7-47.0); Hemoglobin 8.8 GM/DL (12.0-16.0); Immature Granulocytes % 0.4 %; Immature Granulocytes Absolute 0.03 #; Lymphocytes # 1.2 10*3/uL (1.4-4.0); Lymphocytes % 17.9 % (21.3-54.2); Mean Corpuscular HGB Conc 30.1 GM/DL (32-36); Mean Corpuscular Volume 97.3 FL (87-102); Mean Platelet Volume 10.8 FL (9.6-12.0); Monocytes # 0.7 10*3/uL (0.11-0.8); Monocytes % 9.5 % (1.7-12.7); Neutrophils % 69.6 % (38.7-73.9); Platelet Count 139 T/CUMM (130-400); Red Cell Distribution Width 17.2 % (9.3-17.3); White Blood Count 6.8 T/CUMM (4-12)
[2022-07-13 04:49] LABS: Calcium 8.1 MG/DL (8.5-10.1); Osmolality,Calculated 311.8 MOS/KG (273-304); Potassium 4.1 MMOL/L (3.5-5.1)
[2022-07-13] MEDS ORDERED: FUROSEMIDE 80 MG TABLET PO PRN (08:13)
[2022-07-13] MEDS: carvediloL 25 MG TABLET PO SCH (08:24)
[2022-07-13] MEDS: EZETIMIBE 10 MG TABLET PO SCH (08:24)
[2022-07-13] MEDS: FAMOTIDINE 20 MG TABLET PO SCH (08:24)
[2022-07-13] MEDS: allopurinoL 100 MG TABLET PO SCH (08:24)
[2022-07-13] MEDS: PARoxetine 20 MG TABLET PO SCH (08:25)
[2022-07-13] MEDS: FERROUS SULFATE 325 MG TABLET PO SCH (08:26)
[2022-07-13] MEDS: HEPARIN 5,000 UNIT/1 ML VIAL SUBCUT SCH (08:26)
[2022-07-13] MEDS: ISOSORBIDE MONONITRATE 60 MG TABLET PO SCH (08:26)
[2022-07-13] MEDS: ASPIRIN EC 81 MG TABLET PO SCH (08:26)
[2022-07-13] MEDS ORDERED: FUROSEMIDE 20 MG TABLET PO SCH (09:00)
[2022-07-13 09:41] VITALS: BP 159/78
== END 2022-07-13 11:42 | disposition home health service (06) ==
LOC: EDUNIT# → N.ED 11:37 → N.EDINP 11:37 → N.2W 16:51
PROVIDERS: ADMIT Internal Medicine; ATTEND Internal Medicine